=== PATIENT | female | born 1990 | race Caucasian/White ===

== ENCOUNTER → 2016-10-02 | Outpatient (CLI) | payer OTHER | LOC: GRAD 10:44 | DX: A50.02 Early congenital syphilitic osteochondropathy (principal); H57.04 Mydriasis; R51 Headache; R42 Dizziness and giddiness | CPT/HCPCS: Q9967 ==

== ENCOUNTER → 2016-10-07 | Outpatient (CLI) | payer OTHER | LOC: GKIC 09:44 | DX: R51 Headache (principal); R42 Dizziness and giddiness; M31.30 Wegener's granulomatosis without renal involvement ==